=== PATIENT | female | born 1945 | race Caucasian/White ===

== ENCOUNTER → 2016-12-18 | Outpatient (CLI) | payer OTHER ==
[~2016-12-18] MED LIST: CALC-354 PO; CLTP PO; HYDR-5688 PO; METH1CHW PO; MULT-506 PO; OMEG10007 PO; RALO60TA12 PO; ZINC1CAP PO; ZNTT/150 PO
[2016-12-18 12:07] LABS: BASO % 0.2 %; BASO ABS # 0.02 K/uL (0-0.2); COMPLETE YES; EOS % 0.4 %; HEMATOCRIT 43.7 % (37-47); IG% 0.1 %; LYMPH % 37.8 %; LYMPH ABS # 3.07 K/uL (1.2-3.4); MEAN CELL VOLUME 98.9 fL (80-100); MEAN CORPUSCULAR HEMOGLOBIN 35.1 pg (25-34); MEAN CORPUSCULAR HGB CONC 35.5 g/dl (32-36); MEAN PLATELET VOLUME 10.2 fL (7.4-10.4); MONO % 6.3 %; NEUT % 55.2 %; PLATELET COUNT 260 K/uL (130-400); RED BLOOD COUNT 4.42 M/uL (4.2-5.4); WHITE BLOOD COUNT 8.12 K/uL (4.8-10.8)
[2016-12-18 12:28] LABS: ALB/GLOB RATIO 1.1 (0.9-2); ALKALINE PHOSPHATASE 68 U/L (45-117); ALT/SGPT 19 U/L (12-78); AST/SGOT 18 U/L (15-37); BLOOD UREA NITROGEN 18 mg/dl (7-18); BUN/CREATININE RATIO 15.1 (10-20); CALCIUM 9.4 mg/dl (8.5-10.1); CARBON DIOXIDE 22 mmol/L (21-32); CHLORIDE 106 mmol/L (98-107); CHOLESTEROL 207 mg/dl (0-200); CHOLESTEROL/HDL RATIO 2.5; GLUCOSE 103 mg/dl (70-99); HDL CHOLESTEROL 82 mg/dl; LDL CHOLESTEROL CALCULATED 110 mg/dl; SODIUM 139 mmol/L (136-145); TRIGLYCERIDES 76 mg/dl (0-150); VERY LOW DENSITY LIPOPROT CALC 15 mg/dl
[2016-12-18 12:30] LABS: THYROID STIMULATING HORMONE 0.954 uIu/ml (0.300-4.500)
[2016-12-18 12:40] LABS: ESTIMATED AVERAGE GLUCOSE 120 mg/dl; HA1C FLAG Normal (Normal)
== END | disposition home or self-care (01) ==
LOC: C.LAB1850 11:00
PROVIDERS: ATTEND Internal Medicine
DX: M81.0 Age-related osteoporosis without current pathological fracture (principal); R73.09 Other abnormal glucose; E78.5 Hyperlipidemia, unspecified; R00.2 Palpitations; R42 Dizziness and giddiness

== ENCOUNTER 2017-04-19 13:46 | Emergency (ER) | payer OTHER ==
[~2017-04-19] VITALS: Ht 154.9 cm; Wt 55.0 kg
[~2017-04-19 13:46] MED LIST changes: -CALC-354 PO; -HYDR-5688 PO; -RALO60TA12 PO; +RALO60TA30 PO; -ZNTT/150 PO
[2017-04-19 13:48] VITALS: TEMP 37; Ht 154.9 cm; Wt 55.0 kg
[2017-04-19] MEDS ORDERED: ZNTT/150 PO (14:08)
[2017-04-19] MEDS ORDERED: CALC-354 PO (14:08)
--- NOTE | 2017-04-19 14:10 | EMERGENCY ROOM VISIT NOTE ---
History First contact with patient: 13:50 Chief Complaint: KNEEPAIN Stated Complaint: FELL-LEFT KNEE History of Present Illness The patient is a 71 year old female who presents to the Emergency Room via private vehicle with complaints of "fell-left knee". The patient states that around noon time today, she was outside when she went to turn and run briefly and tripped over the hose that was outside. She fell on pavement striking her left knee and her right wrist. She denies striking her head or loss of consciousness. She rates the left knee pain as a 4/10, but much worse with weightbearing. She isn't able to fully extend her leg secondary to pain. She also points to the volar aspect of the right wrist is location of pain and bruising. Her tetanus is up-to-date. Review of Systems A complete 6-point Review of Systems was discussed with the patient, with pertinent positives and negatives listed in the History of Present Illness. All remaining Review of Systems questions can be considered negative unless otherwise specified. 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 Family History Cancer Diabetes mellitus Hypertension Social History Smoking Status: Current Every Day Smoker Alcohol Use: none Marital Status: Housing Status: lives with significant other Occupation Status: retired Current/Historical Medications Scheduled Calcium Carbonate-Cholecalcife (Caltrate 600+D), 1 TAB PO DAILY Methylcobalamin (L47-[id number]), 1 CAP PO DAILY Multivitamin (Multivitamin), 1 TAB PO DAILY Raloxifene Hcl (Evista), 60 MG PO DAILY Ranitidine (Zantac), 150 MG PO QPM Zinc Sulfate (Zinc Sulfate), 1 TAB PO DAILY Scheduled PRN Hydrocodone/Acetaminophen 5MG/325MG (Charlotte 5MG/325MG), 1-2 TABLET PO Q6 PRN for Pain Allergies Coded Allergies: Codeine (Verified Allergy, Severe, HEADACHE, 03/23/16) Sulfa Drugs (Unverified Allergy, Mild, HIVES, 03/23/16) Uncoded Allergies: baeza foods (Allergy, Severe, SHORTNESS OF BREATH, 04/17/11) PREPARED RICE MIXTURES (Allergy, Intermediate, HIVES, 04/17/11) agent used to numb gums in dental office (Allergy, Intermediate, very shakey, 10/26/13) Physical Exam Vital Signs Date Time Temp Pulse Resp B/P (MAP) Pulse Ox O2 Delivery O2 Flow Rate FiO2 04/19/17 15:19 61 17 141/54 96 04/19/17 13:48 37.0 86 18 135/83 94 Room Air Physical Exam VITAL SIGNS - Vital signs and nursing notes were reviewed. Patient is afebrile , hypertensive at 135/80, non-tachycardic and is saturating well on room air 94% . GENERAL -71-year-old female appearing her stated age who is in no acute distress. Communicates well with provider and answers questions appropriately. SKIN - there is a superficial abrasion with no active bleeding noted of the right anterior knee. There is also ecchymosis centralized overlying the volar aspect of the right wrist at the flexor fold. HEAD - NC/AT. No evidence of trauma to the head EXTREMITIES - No clubbing or peripheral cyanosis. No pretibial edema present. There is minimal tenderness to palpation overlying the lateral aspect of the left patella. There is near full range of motion of this region. There is no left hip, left thigh or left jaramillo tenderness. Right lower extremity unremarkable to tenderness upon palpation. Upper extremities unremarkable. She is neurovascularly intact in these regions. +5/5 strength noted in UE/LE bilaterally. Medical Decision & Procedures ER Provider Diagnostic Interpretation: LEFT KNEE 3 VIEWS CLINICAL HISTORY: Fall with left knee pain. FINDINGS: AP, crosstable lateral, and sunrise views of the left knee are obtained. No prior studies are available for comparison at the time of dictation. The skeletal structures are osteopenic. There is a nondistracted fracture through the inferior pole of the patella best seen on the sagittal image. There is overlying soft tissue edema. No additional fracture is seen. There is only minimal degenerative joint space narrowing. A trace joint effusion is noted. A calcified fabella is observed. IMPRESSION: Nondisplaced distracted fracture through the inferior pole of the patella with overlying soft tissue edema and trace joint effusion. Electronically signed by: Benny Breaux M.D. 04/19/2017 2:32 PM Dictated Date/Time: 04/19/2017 2:30 PM RIGHT WRIST 4 VIEWS CLINICAL HISTORY: Fall with right wrist pain. FINDINGS: 4 views of the right wrist are obtained. No prior studies are available for comparison at the time of dictation. The skeletal structures are osteopenic. No fracture is seen. Minimal arthritic change is present at the first carpometacarpal articulation. The joint spaces of the wrist are preserved. Mild overlying soft tissue edema is noted. A small bone island is incidentally noted in the distal radius. IMPRESSION: Mild soft tissue swelling with no radiographic evidence of right wrist fracture. If there is strong clinical concern for occult fracture consider short-term radiographic follow-up. Electronically signed by: Benny Breaux M.D. 04/19/2017 2:38 PM Dictated Date/Time: 04/19/2017 2:36 PM Medications Administered Medications (Trade) Dose Ordered Sig/Sarah Route Start Time Stop Time Status Last Admin Dose Admin Acetaminophen/ Hydrocodone Bitart (Charlotte 5/325 Tab) 1 tab NOW STAT PO 04/19/17 14:49 04/19/17 14:52 DC 04/19/17 15:11 1 TAB Ondansetron HCl (Zofran Odt) 4 mg NOW STAT PO 04/19/17 14:49 04/19/17 14:52 DC 04/19/17 15:10 4 MG Medical Decision Patient was seen and evaluated as above. After obtaining a thorough history and physical examination radiographs were obtained of the left knee and right wrist. She was given ice and offered pain medication but declined. Her tetanus is up-to-date. Radiograph results as above. Patient does have what is believed to be a fracture of the left patella and potentially an occult fracture of the right wrist. I did discuss the case with my attending, and the recommendation was made to discuss the case with the on-call orthopedic doctor since today is Friday regarding potential follow-up and when this may occur. I did discuss the case with Dr. Cueto, on-call orthopedic surgeon. He recommended knee immobilizer, and Velcro wrist splint. I do believe these are reasonable. He informed me that the patient can follow-up in his office on Friday, and the patient is to call first thing Friday morning at 8 AM. Patient was informed upon this. Patient was also seen and evaluated by my attending. Patient does appear stable for outpatient management. She did request something for pain, therefore was given Charlotte for by short-term prescription for this medication. She was educated upon worrisome symptoms which to return, had questions prior to discharge, and was discharged home in good condition. I personally have reviewed the patient's medication list. Patient was found to be hypertensive upon arrival at 135/83. I suspect this is likely secondary to the acute trauma and pain and do not believe that emergent follow-up as necessary. As always, she is recommended to follow-up with her family doctor regarding today's visit. In the evaluation and treatment of this patient, the following differential diagnoses were considered: Patellar Fracture, Tibial Plateau Fracture, Distal Femur Fracture, ACL Injury, PCL Injury, Collateral Ligament Injury, Pes Anserine Bursitis, Maisonneuve Fracture, Wrist Sprain, Wrist Fracture, Wrist Dislocation, Scapholunate Dissociation, Carpal Fracture, Metacarpal Fracture, Radial Styloid Process Fracture, Ulnar Styloid Process Fracture, or Carpal Tunnel Syndrome. [place] Drug Monitoring Program Search Results: patient reviewed within database, no issues identified Impression Primary Impression: Fall Additional Impressions: Patellar fracture Wrist pain, right Departure Information Dispostion Home / Self-Care Condition GOOD Prescriptions Hydrocodone/Acetaminophen 5MG/325MG (Charlotte 5MG/325MG) Tab 1-2 TABLET PO Q6 Y for Pain, #15 TAB For Initial Treatment Prov: Ty Estrella PA-C 04/19/17 Referrals RV. Dias MD (PCP) Ortiz Cueto D.O. Patient Instructions [facility] Additional Instructions You have been treated in the Emergency Department for Knee Pain and wrist pain following a fall. You have received pain medicine in the emergency department which impairs your ability to operate a vehicle. It is illegal for you to drive after receiving these medicines. You have been prescribed NORCO to be used for pain control. This is a narcotic medication. You cannot drive or consume alcohol while on this medicine. This medicine should only be used for pain that cannot be controlled with over-the- counter pain medicines. For pain control, you can use the following [id number] medicines (if >12 yo): NO TYLENOL WITH THE NORCO as it already contains tylenol - Regular strength (200 mg/tab) Advil (ibuprofen) 1-2 tabs every 4-6 hours as needed. Do not exceed a dose of 3200 mg per day. If this is a recent injury (<24 hrs), ice can be applied to the area of pain for the first 3 days to help decrease pain and inflammation. Ice massages can be performed by freezing water in a paper cup, peeling back the cup to expose the ice and then massaging over the affected area. You have been provided the number for an Orthopaedic Surgeon. You should call this number as soon as possible to establish a follow-up visit from today's Emergency Department visit. Keep the knee brace in place until cleared by Orthopedics. Use the crutches you have been provided to keep ALL weight off of the knee until weight bearing is tolerable. Return to the Emergency Department if your current symptoms worsen despite treatment course outlined above. Keep the wrist brace/splint in place until evaluated by Orthopedics. Return to the Emergency Department if your current symptoms worsen despite treatment course outlined above, or if you develop any of the following symptoms : intractable pain despite aforementioned treatment course or new onset of numbness or tingling of the fingers. Please use your walker to keep weight off of the knee. Please call Dr. Cueto's office first thing Friday morning at 8 AM to schedule follow-up for later that day. Please return to the emergency department with any new/concerning symptoms. Problem Qualifiers Primary Impression: Fall Encounter type: initial encounter Qualified Codes: W19.XXXA - Unspecified fall, initial encounter Additional Impressions: Patellar fracture Encounter type: initial encounter Fracture type: closed Fracture alignment : nondisplaced Laterality: left
--- NOTE | 2017-04-19 14:34 | DIAGNOSTIC IMAGING REPORT ---
LEFT KNEE 3 VIEWS CLINICAL HISTORY: Fall with left knee pain. FINDINGS: AP, crosstable lateral, and sunrise views of the left knee are obtained. No prior studies are available for comparison at the time of dictation. The skeletal structures are osteopenic. There is a nondistracted fracture through the inferior pole of the patella best seen on the sagittal image. There is overlying soft tissue edema. No additional fracture is seen. There is only minimal degenerative joint space narrowing. A trace joint effusion is noted. A calcified fabella is observed. IMPRESSION: Nondisplaced distracted fracture through the inferior pole of the patella with overlying soft tissue edema and trace joint effusion. Electronically signed by: Benny Breaux M.D. 04/19/2017 2:32 PM Dictated Date/Time: 04/19/2017 2:30 PM
--- NOTE | 2017-04-19 14:39 | DIAGNOSTIC IMAGING REPORT ---
RIGHT WRIST 4 VIEWS CLINICAL HISTORY: Fall with right wrist pain. FINDINGS: 4 views of the right wrist are obtained. No prior studies are available for comparison at the time of dictation. The skeletal structures are osteopenic. No fracture is seen. Minimal arthritic change is present at the first carpometacarpal articulation. The joint spaces of the wrist are preserved. Mild overlying soft tissue edema is noted. A small bone island is incidentally noted in the distal radius. IMPRESSION: Mild soft tissue swelling with no radiographic evidence of right wrist fracture. If there is strong clinical concern for occult fracture consider short-term radiographic follow-up. Electronically signed by: Benny Breaux M.D. 04/19/2017 2:38 PM Dictated Date/Time: 04/19/2017 2:36 PM
[2017-04-19] MEDS ORDERED: HYDROCODONE/ACETAMOPHEN 5/325MG TAB PO STA (14:49)
[2017-04-19] MEDS ORDERED: ONDANSETRON 4MG OD TAB PO STA (14:49)
[2017-04-19] MEDS ORDERED: HYDR-5688 PO (15:05)
[2017-04-19 15:19] VITALS: BP 141/54; PULSE 61; O2SAT 96
== END 2017-04-19 15:21 | disposition home or self-care (01) ==
LOC: C.EDB 13:47 → C.EDD 15:21
DX: S82.092A Other fracture of left patella, initial encounter for closed fracture (principal); M25.531 Pain in right wrist; W18.09XA Striking against other object with subsequent fall, initial encounter; Z85.3 Personal history of malignant neoplasm of breast; F17.210 Nicotine dependence, cigarettes, uncomplicated